=== PATIENT | male | born 1985 | race Two or more races ===

== ENCOUNTER 2024-06-28 19:52 | Emergency (ER) | payer MEDICAID, SELFPAY ==
[2024-06-28 20:52] VITALS: BP 125/80; PULSE 80; RESP 16; TEMP 36.9; O2SAT 98; BMI 31.5
--- NOTE | 2024-06-28 21:06 | EDRME_ITS ---
Rapid Medical Screening Exam FORMERLY [facility], [facility] Arrival date/time: 06/28/24 19:52 38M with no significant PMH presents to ED with 2 days of RIOS and eye pain (L eye vessel burst), as well as numbness in both upper extremities. Patient drinks alcohol on the weekends. Chief Complaint: Headache Vital signs: Vital Signs Temperature 98.4 F 06/28/24 20:52 Pulse Rate 80 06/28/24 20:52 Respiratory Rate 16 06/28/24 20:52 Blood Pressure 125/80 06/28/24 20:52 Pulse Oximetry (%) 98 06/28/24 20:52 Oxygen Delivery Method Room Air 06/28/24 20:52
--- NOTE | 2024-06-28 21:06 | XR_ITS ---
Examination: CT brain head without contrast. 2-D sagittal coronal reconstructions Date and time of exam:June 28, 2024 2157 hrs. Indications: Headaches with neck pain, ruptured vessels in the eye numbness in the hands beginning 2 days ago CTDI: vol (mGy):54.60 DLP: (mGycm):1268 Technique: Multiple CT axial sections of the brain have been obtained, 5 mm slice thickness. Contrast has not been administered. 2-D sagittal, coronal reconstructions have been obtained Low dose protocols were performed. One or more of the following dose reduction techniques were used; automated exposure control, adjustment of the mA and/or KV according to patient size, use of iterative reconstruction technique. Findings: No significant ventricular enlargement. Intra-axial or extra-axial hemorrhage density is not seen. No mass effect or midline shift Basal cisterns are not remarkable. Fourth ventricle is midline. Cranial vault intact. Impression: Negative for acute hemorrhage, mass effect or midline shift If symptoms persist, suggest brain MRI follow-up
[2024-06-28 21:34] LABS: Amphetamine/Methamp Scrn,U Negative (Negative); Barbiturate Screen,Urine Negative (Negative); Benzodiazepines Screen,Urine Negative (Negative); Benzoylecgonine Screen, Ur Negative (Negative); Fentanyl Screen,Urine Negative (Negative); Opiate Screen,Urine Negative (Negative); THC Screen,Urine Negative (Negative)
[2024-06-28 22:07] LABS: Basophils % (Auto) 1 % (0-2.5); Eosinophils # (Auto) 0.2 Thou/mm3 (0.0-0.5); Eosinophils % (Auto) 2 % (0-10); Hematocrit 44.1 % (41.0-53.0); Hemoglobin 15.1 g/dL (13.5-16.0); Immature Granulocytes % (Auto) 0 % (0-0); Immature Granulocytes Auto 0.03 Thou/mm3 (0.00-0.00); Lymphocytes # (Auto) 2.8 Thou/mm3 (1.0-4.8); Lymphocytes % (Auto) 34 % (10-50); Mean Corpuscular HGB Conc 34.2 g/dl (31.0-37.0); Mean Corpuscular Hemoglobin 27.4 pg (25.0-35.0); Mean Corpuscular Volume 80 fL (80-100); Monocytes # (Auto) 0.8 Thou/mm3 (0.0-0.8); Monocytes % (Auto) 9 % (0-12); Neutrophils # (Auto) 4.5 Thou/mm3 (1.8-7.7); Neutrophils % (Auto) 54 % (37-80); Nucleated Red Blood Cell % 0 /100 WBC (0); Platelet Count 202 Thou/mm3 (140-440); RDW Standard Deviation 39.9 fL (35.1-43.9); Red Blood Count 5.51 Miln/mm3 (4.50-5.90); White Blood Count 8.3 Thou/mm3 (3.8-10.6)
[2024-06-28 22:19] LABS: Glucose Estimated Average 97 mg/dL (80-131)
[2024-06-28 22:25] LABS: Alanine Aminotransferase 28 U/L (10-49); Albumin, Serum 4.5 gm/dL (3.5-5.0); Albumin/Globulin Ratio 1.8 (1.2-2.2); Alcohol, Blood Medical < 3.0 mg/dL (0-10.0); Alkaline Phosphatase 103 U/L (46-116); Anion Gap 6 (7-16); Aspartate Amino Transferase 20 U/L (0-34); BUN/Creatinine Ratio 19 Ratio (12-20); Bilirubin,Total 0.3 mg/dL (0.3-1.2); Blood Urea Nitrogen 19 mg/dL (9-23); Calcium 9.9 mg/dL (8.3-10.6); Calcium (Corrected) 9.9 mg/dL (8.5-10.1); Carbon Dioxide 29.7 mMol/L (20.0-31.0); Chloride 105 mMol/L (98-107); Globulin 2.5 gm/dL (2.3-3.5); Glucose 98 mg/dL (74-106); Osmolality,Calculated 283 (275-295); Sodium 141 mMol/L (136-145); eGFR > 60 See Note
--- NOTE | 2024-06-29 | XR_ITS ---
Examination: MRI brain without intravenous contrast. Date and time of exam: June 29, 2024 1003 hours INDICATIONS: 2 days of headaches, blurred vision, and numbness in both upper extremities Technique: Multiple axial and sagittal images of the brain obtained. Siemens high-resolution 1.5 Francesca short bore scanners utilized. Sagittal sections, T1-weighted, TR 500, TE 14, are performed. Axial sections proton-density and T2-weighted have been obtained. Inversion recovery axial images, TR 9, 260, TE 111, TI 2500. Diffusion weighted images, axial sections, TR 4800, TE 128, B value 1000 Axial sections, ADC map, TR 4800, TE 128 Findings: Enlargement of the sella turcica is not present. The optic chiasm and infundibular are not remarkable. Prepontine and interpeduncular cisterns are not enlarged. There is no localized enlargement of the medulla or shi. Fourth ventricle and cerebellar tonsils appear normal in position. No subacute area of hemorrhage density is seen. Mass in the cerebellopontine angle region is not evident. Globes symmetrical. Orbital musculature including medial lateral rectus muscles do not exhibit abnormality. Diffusion-weighted images demonstrate no focus of restricted diffusion. Increased white matter signal not seen Mass effect upon the ventricular system is not identified. Impression: Negative for acute hemorrhage, mass effect or midline shift No acute infarct No MR findings of demyelinating disease
[2024-06-29 01:47] VITALS: BP 126/84; PULSE 69; RESP 18; TEMP 36.7; O2SAT 98
[2024-06-29] MEDS: ACETAMINOPHEN 325 MG TABLET 650 MG PO (02:38)
--- NOTE | 2024-06-29 02:39 | PD.EDHA ---
ED Headache RME/HPI General Chief Complaint: Headache Stated Complaint: RIOS/neck pain/eye vessel ruptured/numbing hands Arrival date/time: 06/28/24 19:52 Limitations: no limitations RME / HPI RME / HPI Narrative: 06/28/24 19:52 38M with no significant PMH presents to ED with 2 days of RIOS and eye pain (L eye vessel burst), as well as numbness in both upper extremities. Patient drinks alcohol on the weekends. ------ Dr. [facility] Main ED Evaluation: 38yo male with a history of alcoholism presents to the ED for a chief complaint of a left posterior headache x 2 days. Patient states his headache was intermittent, reporting it has now become persistent over the last one day or so. He currently rates the pain a 4 out of 10 in severity. No radiation or migration. He states he became concerned when he noticed his left eye turning red, so he came in for evaluation. He denies any vision changes, hearing changes, N/V or any other associated symptoms. Denies any trauma. No known allergies. Related Data Allergies Allergy/AdvReac Type Severity Reaction Status Date / Time No Known Allergies Allergy Verified 06/28/24 19:57 Review of Systems Review of Systems Systems Reviewed: All systems reviewed, normal except as documented Past Medical History Social History SMOKING STATUS: Former smoker ED Exam General Limitations: Present no limitations General appearance: Present alert and in no apparent distress Head Head exam: Present atraumatic Eye Eye exam: Present normal appearance, PERRL and EOMI ENT ENT exam: Present normal exam, normal oropharynx and mucous membranes moist Neck Neck exam: Present normal inspection, full ROM and trachea midline Chest Chest inspection: Present normal inspection and symmetric chest wall rise Respiratory Respiratory exam: Present normal lung sounds bilaterally Cardiovascular Cardiovascular exam: Present regular rate, normal rhythm and normal heart sounds Abdominal Exam Abdominal exam: Present soft and normal bowel sounds Extremities Exam Extremities exam: Present normal inspection and full ROM Back Exam Back exam: Present normal inspection and full ROM Neurological Exam Neurological exam: Present alert, oriented X3, CN II-XII intact and other (normal [id number] exam) Psychiatric Psychiatric exam: Present normal affect and normal mood Skin Skin exam: Present warm, dry, intact and normal color Course Quality Measures none Orders Category Date Time Status MRI Screening NOW Care 06/29/24 02:28 Active MRI Screening NOW Care 06/29/24 02:[address] head/brain wo con Stat Exams 06/28/24 21:06 Completed MR head/brain wo con Stat Exams 06/29/24 Ordered A1C [Glycohemoglobin w (eAG)] Stat Lab 06/28/24 21:19 Completed Alcohol, Blood Medical Stat Lab 06/28/24 21:19 Completed CBC Stat Lab 06/28/24 21:19 Completed CMP [Comprehensive Metabolic Panel] Stat Lab 06/28/24 21:19 Completed Drug Screen,Urine Stat Lab 06/28/24 21:15 Completed Acetaminophen Tab [Tylenol Tab] Med 06/29/24 02:34 Discontinued 650 mg PO X1 ONE Vital Signs Vital signs: Vital Signs Temperature 98.4 F 06/28/24 20:52 Pulse Rate 80 06/28/24 20:52 Respiratory Rate 16 06/28/24 20:52 Blood Pressure 125/80 06/28/24 20:52 Pulse Oximetry (%) 98 06/28/24 20:52 Oxygen Delivery Method Room Air 06/28/24 20:52 Pulse ox is 98% on room air, which is normal according to my interpretation. Headache MDM Narrative MDM Narrative:: see below Patient data External records reviewed:: [facility] previous records (Per chart review, patient has no previous ED visits or admissions to this facility.) Clinical information provided by:: patient Social determinants that could affect healthcare access:: alcohol use (history of) Patient has the following chronic illnesses:: none How is presenting disease/condition affected by chronic disease/condition?: no chronic disease Evaluation data The following diagnostics were reviewed and interpreted by me:: lab results and radiology exam(s) Lab and/or radiology exams considered but not ordered:: none Interpretation Summary: CBC is normal, CMP is normal, UDS is unremarkable, Blood alcohol is negative, according to my interpretation. ----- I have personally reviewed the radiology data and agree with the radiologist's interpretation below: [facility] Report Signed Patient: [facility]. Record#: [id number] Birthdate: 1985 Age/Sex: 38 / M Location: [facility] Attending Dr: Ordering Physician: Prosper Jerry PA-C Date of Service: 06/28/24 Procedure(s): CT head/brain wo con Accession Number(s): [id number] cc: Christian Núñez MD; NO PRIMARY/FAMILY,PHYSICIAN; Prosper Jerry PA-C~ Examination: CT brain head without contrast. 2-D sagittal coronal reconstructions Date and time of exam:June 28, 2024 2157 hrs. Indications: Headaches with neck pain, ruptured vessels in the eye numbness in the hands beginning 2 days ago CTDI: vol (mGy):54.60 DLP: (mGycm):1268 Technique: Multiple CT axial sections of the brain have been obtained, 5 mm slice thickness. Contrast has not been administered. 2-D sagittal, coronal reconstructions have been obtained Low dose protocols were performed. One or more of the following dose reduction techniques were used; automated exposure control, adjustment of the mA and/or KV according to patient size, use of iterative reconstruction technique. Findings: No significant ventricular enlargement. Intra-axial or extra-axial hemorrhage density is not seen. No mass effect or midline shift Basal cisterns are not remarkable. Fourth ventricle is midline. Cranial vault intact. Impression: Negative for acute hemorrhage, mass effect or midline shift If symptoms persist, suggest brain MRI follow-up Dictated By: Christian Núñez MD Signed By: <Electronically signed by Christian Núñez MD in OV> 06/28/24 2212 Medications / Prescriptions Medications or Prescriptions considered but not ordered:: none Medication administrations:: Medication Administration History Discontinued Medications Acetaminophen (Acetaminophen 325 Mg Tablet) 650 mg PO X1 ONE Stop: 06/29/24 02:35 Last Admin: 06/29/24 02:38 Dose: 650 mg Documented By: SF see above Consultations Consultation(s) initiated? (list below): No Diagnosis Differential diagnosis headache: other (atypical migraine, tumor, musculoskeletal pain, dehydration, trauma) Most likely diagnosis given after review of the tests above:: see below Admission Indicated Admission indicated?: not indicated Admission Request Was there a request for admission?: No Disposition Plan Disposition Plan: other (specify) (Signed out to the next oncoming provider at 0600 pending MRI.) Discharge Plan Plan Disposition Comment: Stable at signout Prescriptions/Referrals Referrals: No Primary/Family,Physician [Primary Care Provider] - In 1 week Problem List Clinical Impression: Headache Patient/Caregiver Discharge Instructions Print Language: Senegalese
[2024-06-29 04:07] VITALS: BP 116/79; PULSE 76; RESP 18; TEMP 36.8; O2SAT 98
--- NOTE | 2024-06-29 07:02 | PD.EDADDENDU ---
Emergency Room Addendum Addendum Narrative: 7:00am sign out received by Dr. Russell. Patient presented with a headache. Patient also had conjunctival effusion as presented during signout. Patient also redness in his eyes along with hand tingling sensation. Patient is pending MRI head. Once MRI results, if negative, patient will be discharged home. On my exam, patient is in no biological distress. He appears hemodynamically stable. Thank you, Suzie Cuadra, PGY-2
[2024-06-29 08:12] VITALS: BP 126/79; PULSE 77; RESP 20; TEMP 36.8; O2SAT 98
[2024-06-29 10:10] VITALS: BP 114/72; PULSE 66; RESP 18; TEMP 36.8; O2SAT 98
--- NOTE | 2024-06-29 11:33 | PD.EDRME ---
Rapid Medical Screening Exam RME Arrival date/time: 06/28/24 19:52 06/28/24 19:52 38M with no significant PMH presents to ED with 2 days of RIOS and eye pain (L eye vessel burst), as well as numbness in both upper extremities. Patient drinks alcohol on the weekends. ------ Dr[facility] Main ED Evaluation: 38yo male with a history of alcoholism presents to the ED for a chief complaint of a left posterior headache x 2 days. Patient states his headache was intermittent, reporting it has now become persistent over the last one day or so. He currently rates the pain a 4 out of 10 in severity. No radiation or migration. He states he became concerned when he noticed his left eye turning red, so he came in for evaluation. He denies any vision changes, hearing changes, N/V or any other associated symptoms. Denies any trauma. No known allergies. Chief Complaint: Headache Time Seen by Provider: 06/29/24 11:33 Vital signs: Vital Signs Temperature 98.4 F 06/28/24 20:52 Pulse Rate 80 06/28/24 20:52 Respiratory Rate 16 06/28/24 20:52 Blood Pressure 125/80 06/28/24 20:52 Pulse Oximetry (%) 98 06/28/24 20:52 Oxygen Delivery Method Room Air 06/28/24 20:52 RME Narrative: 06/28/24 19:52 38M with no significant PMH presents to ED with 2 days of RIOS and eye pain (L eye vessel burst), as well as numbness in both upper extremities. Patient drinks alcohol on the weekends. ------ Dr. [facility] Main ED Evaluation: 38yo male with a history of alcoholism presents to the ED for a chief complaint of a left posterior headache x 2 days. Patient states his headache was intermittent, reporting it has now become persistent over the last one day or so. He currently rates the pain a 4 out of 10 in severity. No radiation or migration. He states he became concerned when he noticed his left eye turning red, so he came in for evaluation. He denies any vision changes, hearing changes, N/V or any other associated symptoms. Denies any trauma. No known allergies.
[2024-06-29 12:00] VITALS: BP 114/72; PULSE 67; RESP 15; TEMP 37.1; O2SAT 98
== END 2024-06-29 12:09 | disposition home or self-care (01) ==
PROVIDERS: Physician Assistant; Emergency Provider Emergency Medicine
DX: R51.9 Headache, unspecified (principal); R20.0 Anesthesia of skin; R20.2 Paresthesia of skin; H57.12 Ocular pain, left eye
CPT/HCPCS: 36415; 70450; 70551; 80053; 80307; 80320; 83036; 85025; 99284; A9270; G0480